=== PATIENT | male | born 1940 | race Two or more races ===

== ENCOUNTER 2024-06-05 12:15 | Emergency (ER) | payer MEDICARE ==
[~2024-06-05] VITALS: Ht 172.7 cm; Wt 86.0 kg
[2024-06-05] MEDS: DIPHENHYDRAMINE 50MG/ML VIAL IM ONE (12:51)
[2024-06-05] MEDS: HALOPERIDOL LACTATE 5MG/ML VIAL IM ONE (12:52)
[2024-06-05 13:20] VITALS: O2SAT 98
[2024-06-05 15:03] LABS: BASOPHILS % 0.9 % (0.0-2.0); EOSINOPHILS % 2.5 % (0.0-5.0); HEMATOCRIT. 41.3 % (42.0-52.0); HEMOGLOBIN. 13.5 g/dL (14.0-18.0); LYMPHOCYTES % 16.7 % (20.0-50.0); MEAN CORPUSCULAR HEMOGLOBIN 30.6 pg (28.0-32.0); MEAN CORPUSCULAR HGB CONC 32.7 g/dL (31.0-37.0); MEAN CORPUSCULAR VOLUME 93.7 fL (80.0-94.0); MEAN PLATELET VOLUME 7.7 fl (7.4-10.4); MONOCYTES % 8.3 % (2.0-8.0); NEUTROPHILS % 71.6 % (40.0-76.0); PLATELET 206 x1000/uL (130-400); RED BLOOD CELL COUNT 4.41 mill/uL (4.7-6.1); RED CELL DISTRIBUTION WIDTH 15.5 % (11.6-14.6); WHITE BLOOD COUNT 7.1 x1000/uL (4.5-11.0)
[2024-06-05 15:04] LABS: CHLORIDE 115 mEq/L (98-107); POTASSIUM 3.7 mEq/L (3.5-5.1); SODIUM 148 mEq/L (136-145)
[2024-06-05 15:05] LABS: CALCIUM 8.8 mg/dL (8.7-10.4); CARBON DIOXIDE 25 mEq/L (21-32)
[2024-06-05 15:10] LABS: CREATININE 1.1 mg/dL (0.6-1.3); GLUCOSE 115 mg/dL (70-105); UREA NITROGEN BLOOD 15 mg/dL (9-23)
[2024-06-05 15:12] LABS: ACETAMINOPHEN < 2 ug/mL (10-30)
[2024-06-05 15:20] LABS: ETHANOL BLOOD 281 mg/dL (<10)
[2024-06-05 23:56] LABS: *AMPHETAMINES SCREEN URINE NEGATIVE (NEGATIVE); *BARBITURATES SCREEN URINE NEGATIVE (NEGATIVE); *BENZODIAZEPINES SCREEN URINE NEGATIVE (NEGATIVE); *COCAINE SCREEN URINE NEGATIVE (NEGATIVE); METHADONE URINE SCREEN NEGATIVE (NEGATIVE); OPIATES URINE SCREEN NEGATIVE (NEGATIVE)
[2024-06-05 23:57] LABS: CANNABINOID URINE SCREEN NEGATIVE (NEGATIVE); ECSTASY MDMA SCREEN URINE NEGATIVE (NEGATIVE); PHENCYCLIDINE URINE SCREEN NEGATIVE (NEGATIVE)
[2024-06-06 10:09] LABS: CLARITY URINE CLOUDY (CLEAR); COLOR URINE YELLOW (YELLOW); GLUCOSE URINE NEGATIVE (NEGATIVE); KETONES URINE NEGATIVE (NEGATIVE); LEUKOCYTE ESTERASE URINE 1+ (NEGATIVE); NITRITE URINE NEGATIVE (NEGATIVE); OCCULT BLOOD URINE NEGATIVE (NEGATIVE); PH URINE 6.5 (4.5-8.0); PROTEIN URINE NEGATIVE (NEGATIVE); SPECIFIC GRAVITY URINE 1.016 (1.005-1.030)
[2024-06-06 10:11] VITALS: BP 154/87; PULSE 79; RESP 20; TEMP 36.72516; O2SAT 98
[2024-06-06 10:43] LABS: BACTERIA URINE 4+; MUCUS URINE TRACE /lpf (NONE/TRACE); SQUAMOUS EPITHELIAL CELL URINE RARE /lpf (RARE/1+)
[2024-06-06 10:44] LABS: RBC URINE NONE SEEN /hpf (0-2); WBC URINE 25-50 /hpf (0-2)
[2024-06-06] MEDS ORDERED: LEVO-65 PO (11:07)
[2024-06-06] MEDS ORDERED: RISPERIDONE 1MG TABLET PO SCH (21:00)
== END 2024-06-06 11:26 | disposition home or self-care (01) ==
LOC: EDBD 12:15 → ER 12:15
DX: F10.129 Alcohol abuse with intoxication, unspecified (principal); N39.0 Urinary tract infection, site not specified; F19.90 Other psychoactive substance use, unspecified, uncomplicated; Z20.822 Contact with and (suspected) exposure to COVID-19; Y90.9 Presence of alcohol in blood, level not specified
CPT/HCPCS: 80305; 80048; 80307; 80329; 80320; 85025; 36415; 96372; 99285; 87426; 81003; 87086; J1200; J1630; G0480